=== PATIENT | female | born 1970 | race Caucasian/White ===

== ENCOUNTER → 2020-07-07 | Outpatient (CLI) | payer BC, OTHER | END | disposition home or self-care (01) | LOC: COVID19 08:30 | PROVIDERS: ATTEND Internal Medicine | DX: Z20.828 Contact with and (suspected) exposure to other viral communicable diseases (principal) ==

== ENCOUNTER 2020-12-15 07:25 | Observation (INO) | payer OTHER, BC ==
[~2020-12-15] VITALS: Ht 157.4 cm; Wt 112.2 kg
[2020-12-15 07:49] VITALS: BP 152/73
[2020-12-15 07:50] LABS: BASO % 0.6 % (0.0-1.0); EOS # 0.1 10*3/uL (0.0-0.4); EOS % 2.2 % (1.0-4.0); HEMATOCRIT 41.4 % (37.0-47.0); LYMPH # 1.8 10*3/uL (1.3-4.4); LYMPH % 35.3 % (27.0-41.0); MEAN CELL VOLUME 99.3 fl (81.0-99.0); MEAN CORPUSCULAR HGB 31.9 pg (27.0-31.0); MEAN CORPUSCULAR HGB CONC 32.1 g/dl (33.0-37.0); MEAN PLATELET VOLUME 10.2 fl (9.6-12.3); MONO # 0.3 10*3/uL (0.1-1.0); MONO % 6.3 % (3.0-9.0); NEUT # 2.8 10*3/uL (2.3-7.9); NEUT % 55.4 % (47.0-73.0); PLATELET COUNT AUTOMATED 221 10*3/uL (130-400); RED BLOOD COUNT 4.17 10*6/uL (4.10-5.10); RED CELL DISTRI WIDTH 14.4 % (0-14.5)
[2020-12-15 08:06] LABS: ALBUMIN 3.5 gm/dl (3.1-4.5); ALKALINE PHOSPHATASE 112 U/L (45-117); BUN 13 mg/dl (7-24); CHLORIDE 107 mmol/L (98-107); POTASSIUM 3.8 mmol/L (3.5-5.1); SGOT/AST 22 IU/L (3-35); SGPT/ALT 49 U/L (12-78); SODIUM 139 mmol/L (136-145); TOTAL PROTEIN 7.4 gm/dL (6.4-8.2)
[2020-12-15 08:09] LABS: TROPONIN I < 0.015 ng/ml (<0.045)
[2020-12-15 08:36] VITALS: BP 112/50
[2020-12-15 10:10] VITALS: BP 115/63
[2020-12-15] MEDS ORDERED: LIPITOR20 MG PO (10:39)
[2020-12-15] MEDS ORDERED: VITAMIN D375 MCG PO (10:39)
[2020-12-15 11:45] VITALS: BP 138/80
[2020-12-15 16:00] VITALS: BP 136/58
== END 2020-12-15 16:59 | disposition home or self-care (01) ==
LOC: ED 07:25 → 4E 09:34 → EDHOLD 09:34 → 4E 09:34
PROVIDERS: Emergency Medicine; ADMIT Internal Medicine; ATTEND Internal Medicine
DX: R07.2 Precordial pain (principal); E78.2 Mixed hyperlipidemia; E66.9 Obesity, unspecified; R73.9 Hyperglycemia, unspecified; E83.41 Hypermagnesemia; Z68.42 Body mass index [BMI] 45.0-49.9, adult

== ENCOUNTER 2021-05-27 10:26 | Emergency (ER) | payer OTHER, BC ==
[~2021-05-27] VITALS: Ht 160 cm; Wt 72.6 kg
[~2021-05-27 10:26] MED LIST: LIPITOR20 MG PO; VITAMIN D375 MCG PO
[2021-05-27 11:24] LABS: HEMATOCRIT 39.1 % (37.0-47.0); MEAN CELL VOLUME 95.1 fl (81.0-99.0); MEAN CORPUSCULAR HGB 31.6 pg (27.0-31.0); MEAN CORPUSCULAR HGB CONC 33.2 g/dl (33.0-37.0); MEAN PLATELET VOLUME 10.4 fl (9.6-12.3); PLATELET COUNT AUTOMATED 141 10*3/uL (130-400); RED BLOOD COUNT 4.11 10*6/uL (4.10-5.10); RED CELL DISTRI WIDTH 14.2 % (0-14.5); WHITE BLOOD COUNT 3.2 10*3/uL (4.8-10.8)
[2021-05-27 11:42] LABS: ALBUMIN 3.3 gm/dl (3.1-4.5); ALKALINE PHOSPHATASE 87 U/L (45-117); BUN 6 mg/dl (7-24); CHLORIDE 104 mmol/L (98-107); CPK 273 U/L (26-192); POTASSIUM 3.7 mmol/L (3.5-5.1); SGOT/AST 58 IU/L (3-35); SGPT/ALT 65 U/L (12-78); SODIUM 134 mmol/L (136-145); TOTAL PROTEIN 7.1 gm/dL (6.4-8.2)
[2021-05-27 11:43] LABS: ATYPICAL LYMPHS 4 % (0-0); PLATELET SUFFICIENCY NORMAL (NORMAL); TOTAL CELLS COUNTED 100 #CELLS
== END 2021-05-27 13:46 | disposition home or self-care (01) ==
LOC: ED 10:26
PROVIDERS: Emergency Medicine
DX: U07.1 COVID-19 (principal); J12.82 Pneumonia due to coronavirus disease 2019; Z88.1 Allergy status to other antibiotic agents; Z79.899 Other long term (current) drug therapy